=== PATIENT | female | born 1985 | race Caucasian/White ===

== ENCOUNTER 2018-01-16 05:55 | Day surgery (SDC) | payer OTHER ==
[2018-01-16] MEDS ORDERED: CEFAZOLIN 2 GM/50 ML (PMX) 50 ML IVPB (07:00)
[2018-01-16] MEDS ORDERED: ALBUTEROL 0.083% (NEB) 2.5 MG/3 ML AMP (07:32)
[2018-01-16] MEDS ORDERED: LIDOCAINE 1% (MDV) 20 ML INJ (07:53)
[2018-01-16] MEDS ORDERED: PROPOFOL 20 ML (07:53)
[2018-01-16] MEDS ORDERED: MIDAZOLAM 1 MG/ML 2 ML INJ (07:53)
[2018-01-16] MEDS ORDERED: ONDANSETRON 4 MG INJ (08:12)
[2018-01-16] MEDS ORDERED: DEXAMETHASONE 4 MG/ML 1 ML INJ (08:12)
[2018-01-16] MEDS ORDERED: CEFAZOLIN 1 GM INJ (08:22)
[2018-01-16] MEDS ORDERED: FENTAnyl 50 MCG/ML VIAL (08:26)
[2018-01-16] MEDS ORDERED: HYDROmorphONE (0.2 MG/ML) 10ML SYG IV ×2 (09:30)
[2018-01-16] MEDS ORDERED: hydrALAzine 20 MG INJ IV (09:30)
[2018-01-16] MEDS ORDERED: FENTAnyl 50 MCG/ML VIAL IV ×2 (09:30)
[2018-01-16] MEDS ORDERED: KETOROLAC 15 MG INJ IV (09:30)
[2018-01-16] MEDS ORDERED: ONDANSETRON 4 MG INJ IV (09:30)
[2018-01-16] MEDS ORDERED: METOCLOPRAMIDE 10 MG INJ IV (09:30)
[2018-01-16] MEDS: FENTAnyl 50 MCG/ML VIAL IV (10:06)
== END 2018-01-16 10:52 | disposition home or self-care (01) ==
LOC: SDS 05:55
DX: N84.0 Polyp of corpus uteri (principal); N92.0 Excessive and frequent menstruation with regular cycle; D25.9 Leiomyoma of uterus, unspecified; I49.8 Other specified cardiac arrhythmias
CPT/HCPCS: 58558; 86850; 86900; 86901; 88305; 93005